=== PATIENT | male | born 1995 | race African-American/Black ===

== ENCOUNTER 2020-11-26 14:17 | Emergency (ER) | payer SELFPAY ==
[~2020-11-26] VITALS: Ht 179.1 cm; Wt 68.0 kg
--- NOTE | 2020-11-26 14:42 | PHYS DOC ---
General Adult EDM: Chief Complaint: DRUG ABUSE HPI: HPI: Patient is a 25 year old male who presents with here by EMS after patient states he " took a big rip off of a K2 bong". Patient had some nausea and vomiting when EMS arrived. EMS states that patient was going in and out of consciousness. Patient is hallucinating and does state that he is at his girlfriend's house. Patient is otherwise alert and oriented. Patient is very tachycardic in the 130s to 140s. States he is on Suboxone and did take it last night. He states that he used cocaine and meth 5 days ago and heroin 2 days ago. He is a smoker but denies any alcohol. He denies SI or HI, chest pain, shortness of breath, abdominal pain, fever, cough, back pain, syncope, dizziness, headache, vision changes, fall. Review of Systems: Review of Systems: Constitutional: Denies fever or chills. [] Eyes: Denies change in visual acuity. [] HENT: Denies nasal congestion or sore throat. [] Respiratory: Denies cough or shortness of breath. [] Cardiovascular: Denies chest pain or edema. [] GI: Denies abdominal pain, +nausea, +vomiting, denies bloody stools or diarrhea. [] : Denies dysuria. [] Musculoskeletal: Denies back pain or joint pain. [] Integument: Denies rash. [] Neurologic: Denies headache, focal weakness or sensory changes. +AMS[] Endocrine: Denies polyuria or polydipsia. [] Lymphatic: Denies swollen glands. [] Psychiatric: Denies depression or anxiety. +Hallucinations[] Heart Score: C/O Chest Pain: No Risk Factors: Risk Factors: DM, Current or recent (<one month) smoker, HTN, HLP, family histo ry of CAD, obesity. Risk Scores: Score 0 - 3: 2.5% MACE over next 6 weeks - Discharge Home Score 4 - 6: 20.3% MACE over next 6 weeks - Admit for Clinical Observation Score 7 - 10: 72.7% MACE over next 6 weeks - Early Invasive Strategies Physical Exam: PE: Constitutional: Well developed, well nourished, no acute distress, non-toxic appearance. [] HENT: Normocephalic, atraumatic, bilateral external ears normal, oropharynx moist, no oral exudates, nose normal. [] Eyes: PERRLA, EOMI, conjunctiva normal, no discharge. [] Neck: Normal range of motion, no tenderness, supple, no stridor. [] Cardiovascular:Heart rate tachycardia regular rhythm, no murmur [] Lungs & Thorax: Bilateral breath sounds clear to auscultation [] Abdomen: Bowel sounds normal, soft, no tenderness, no masses, no pulsatile masses. [] Skin: Warm, dry, no erythema, no rash. [] Back: No tenderness, no CVA tenderness. [] Extremities: No tenderness, no cyanosis, no clubbing, ROM intact, no edema. [] Neurologic: Alert and oriented X 2, normal motor function, normal sensory function, no focal deficits noted. [] Psychologic: Affect normal, judgement normal, mood normal. [] EKG: EK and read by Dr Howard as sinus tachycardia but no STEMI. Radiology/Procedures: Radiology/Procedures: [] Impression: [facility] [address] [place] [address] IMAGING REPORT Signed PATIENT: VANESSA CROCKETT ACCOUNT: [id number] : 1995 LOCATION: ER AGE: 25 SEX: M EXAM STATUS: REG ER ORD. PHYSICIAN: SLADE AGUILAR APRN REASON: tachycardic, ams PROCEDURE: PORTABLE CHEST 1V INDICATION: Reason: tachycardic, ams / Spl. Instructions: / History: COMPARISON: None. FINDINGS: Single view of chest obtained. No focal airspace consolidation. Cardiac silhouette is unremarkable. Suspected calcified granuloma right upper lung. IMPRESSION: * No focal airspace consolidation or edema. Electronically signed by: Cem Corral MD (11/26/2020 3:02 PM) [id number] DICTATED and SIGNED BY: CEM CORRAL MD DATE: 11/26/20 [id number] 0 Course & Med Decision Making: Course & Med Decision Making Pertinent Labs and Imaging studies reviewed. (See chart for details) See HPI. Girlfriend called EMS because friend told her that the patient was passed out and she did not know that he had taken a hit of K2 right before this happened. Speaks in full clear sentences. Follows commands and answers most questions appropriately although he states that he is at his girlfriend's house. He denies SI or HI. He is tachycardic in the 130s to 140s. EMS stated that he was unwilling to come and was fighting back and was very agitated. He has not been agitated here yet. Skin pink warm and dry. Blood work unremarkable. Patient is now up and walking around the hospital with a steady fast gait. Patient is going to leave AMA. He is now alert and oriented x4 without slurred speech. Patient is stable states he is feeling better. Patient understands by leaving AMA and not getting a CT of his head that he could have a brain bleed, there is a chance of or disability or chronic pain. Patient states his understanding and that if anything happens he will come back. Dr Howard has also seen and spoken tot this patient. Girlfriend states that she will be with the patient and watch him closely. [] Enio Disclaimer: Enio Disclaimer: This electronic medical record was generated, in whole or in part, using a voice recognition dictation system. Departure Departure Impression: Primary Impression: Drug abuse Additional Impression: Syncopal episodes Qualified Codes: R55 - Syncope and collapse Disposition: 07 AMA/ELOPED/LWBS Condition: STABLE SLADE AGUILAR APRN Nov 26, 2020 14:42
[2020-11-26 14:44] LABS: BASO # 0.1 x10^3/uL (0.0-0.2); BASO % 1 % (0-3); EOS # 0.1 x10^3/uL (0.0-0.7); EOS % 2 % (0-3); HEMATOCRIT 44.1 % (39.0-53.0); HEMOGLOBIN 15.1 g/dL (13.0-17.5); LYMPH # 2.1 x10^3/uL (1.0-4.8); LYMPH % 27 % (24-48); MEAN CORPUSCULAR HEMOGLOBIN 31 pg (25-35); MEAN CORPUSCULAR HGB CONC 34 g/dL (31-37); MEAN CORPUSCULAR VOLUME 91 fL (79-100); MONO # 0.6 x10^3/uL (0.0-1.1); MONO % 7 % (0-9); NEUT % 64 % (31-73); PLATELET COUNT 239 x10^3/uL (140-400); RED BLOOD COUNT 4.83 x10^6/uL (4.30-5.70); RED CELL DISTRIBUTION WIDTH 12.9 % (11.5-14.5); WHITE BLOOD COUNT 7.8 x10^3/uL (4.0-11.0)
[2020-11-26] MEDS ORDERED: IV NORMAL SALINE 1000ML BAG 1,000 ML IV SCH (14:45)
[2020-11-26 15:00] LABS: CALCIUM 9.3 mg/dL (8.5-10.1); CREATININE 1.3 mg/dL (0.7-1.3); GFR 66.2; POTASSIUM 3.7 mmol/L (3.5-5.1)
[2020-11-26] MEDS ORDERED: IV NORMAL SALINE 1000ML BAG 1,000 ML IV ONE (15:00)
[2020-11-26 15:03] LABS: ALBUMIN 3.8 g/dL (3.4-5.0); TOTAL BILIRUBIN 1.1 mg/dL (0.2-1.0); TOTAL PROTEIN 7.7 g/dL (6.4-8.2)
--- NOTE | 2020-11-26 15:04 | RAD ---
INDICATION: Reason: tachycardic, ams / Spl. Instructions: / History: COMPARISON: None. FINDINGS: Single view of chest obtained. No focal airspace consolidation. Cardiac silhouette is unremarkable. Suspected calcified granuloma right upper lung. IMPRESSION: * No focal airspace consolidation or edema. Electronically signed by: Reymundo Stokes MD (11/26/2020 3:02 PM) [id number]
[2020-11-26 15:22] VITALS: BP 91/44
== END 2020-11-26 15:50 | disposition left against medical advice (07) ==
LOC: ER 14:17 → EDBD 14:17 → ER 15:50
DX: F12.10 Cannabis abuse, uncomplicated (principal); R55 Syncope and collapse; R44.3 Hallucinations, unspecified; R00.0 Tachycardia, unspecified
CPT/HCPCS: 36415; 71045; 80053; 83690; 83880; 84484; 85025; 93005; 96360; 99285; J7030

== ENCOUNTER 2020-12-26 20:13 | Emergency (ER) | payer SELFPAY ==
[~2020-12-26] VITALS: Ht 177.8 cm; Wt 66.0 kg
[2020-12-26] MEDS ORDERED: IV NORMAL SALINE 1000ML BAG 1,000 ML IV ONE (20:30)
--- NOTE | 2020-12-26 20:31 | PHYS DOC ---
Past Medical History Past Medical History: Other Additional Past Medical Histor: DRUG USE Past Surgical History: No Surgical History Smoking Status: Current Every Day Smoker Alcohol Use: None Drug Use: Amphetamine, Cocaine, Marijuana, Methamphetamine, Other (K2) General Adult HPI: HPI: Patient is a 25-year-old male presenting via EMS for drug abuse. Patient self admittedly took methamphetamine, K2 and fentanyl within past 12 hours. Reports getting in verbal altercation after a friend alleges that patient kicked his dog and later states, " I think he put bleach in my syringe and I shot it up"! Patient subsequently called EMS for transport to our facility for evaluation. On arrival, EMS denied any known bleach access, patient at scene denied even having bleach in house, other witness confirmed illicit drug use noted above. Patient has no other medical issues besides polysubstance abuse. No daily medications prescribed. Patient states he is in no pain, "just tripping balls because I do not want to me". Review of Systems: Review of Systems: Fourteen body systems of review of systems have been reviewed. See HPI for pertinent positives and negative responses, other zepeda all other systems are negative, non-pertinent or non-contributory Heart Score: C/O Chest Pain: No HEART Score for Chest Pain: HEART Score for Chest Pain Response (Comments) Value History Moderately Suspicious 1 ECG Nonspecific Repolarizatio 1 Age < 45 0 Risk Factors No Risk Factors 0 Troponin < Normal Limit 0 Total 2 Risk Factors: Risk Factors: DM, Current or recent (<one month) smoker, HTN, HLP, family history of CAD, obesity. Risk Scores: Score 0 - 3: 2.5% MACE over next 6 weeks - Discharge Home Score 4 - 6: 20.3% MACE over next 6 weeks - Admit for Clinical Observation Score 7 - 10: 72.7% MACE over next 6 weeks - Early Invasive Strategies Allergies: Allergies: Allergies Coded Allergies Type Severity Reaction Last Updated Verified No Known Drug Allergies 11/26/20 No Physical Exam: PE: Constitutional: Pt is oriented to person, place, and time. Presentation consistent with acute methamphetamine overdose. Diaphoretic, erratic and pressured speech patterns, concerned about his health HEENT: Head: Normocephalic and atraumatic. Diaphoretic TMs clear, no hemotympanum Conjunctivae and EOM are normal. Pupils are equal, round, and reactive to light. Oropharynx is clear and dry with poor dentition. No hematomas or lacerations or abrasions to face or scalp OP clear, no blood, no malocclusion, dentition intact Nares clear, no nasal septal hematoma Midface stable Neck: C-spine midline nontender, no step-offs Cardiovascular: Tachycardic rate, regular rhythm and normal heart sounds. Pulmonary/Chest: Effort normal and breath sounds normal. No respiratory distress. No wheezes. CTA bilaterally Abdominal: Soft. Bowel sounds are normal. Pt exhibits no distension. There is no tenderness. Musculoskeletal: No bony tenderness to extremities, no deformities, full ROM extremities Chest wall stable Pelvis stable and non-tender No vertebral TTP and spine without stepoffs Neurological: Pt is alert and oriented to person, place, and time. Moving all extremities willfully, able to wiggle all fingers and toes Alert and oriented x 3 Sensation grossly intact Skin: Skin is warm and dry. No abrasions, no lacerations Psychiatric: Unable to fully assess due to acute intoxication of methamphetamine, K2 and fentanyl. Anxious affect and mood. Denies HI/SI Current Patient Data: Labs: Laboratory Tests Test 12/26/20 20:25 White Blood Count 12.4 x10^3/uL Red Blood Count 4.26 x10^6/uL Hemoglobin 13.3 g/dL Hematocrit 37.9 % Mean Corpuscular Volume 89 fL Mean Corpuscular Hemoglobin 31 pg Mean Corpuscular Hemoglobin Concent 35 g/dL Red Cell Distribution Width 13.1 % Platelet Count 275 x10^3/uL Neutrophils (%) (Auto) 73 % Lymphocytes (%) (Auto) 13 % Monocytes (%) (Auto) 13 % Eosinophils (%) (Auto) 1 % Basophils (%) (Auto) 1 % Neutrophils # (Auto) 9.0 x10^3/uL Lymphocytes # (Auto) 1.6 x10^3/uL Monocytes # (Auto) 1.6 x10^3/uL Eosinophils # (Auto) 0.1 x10^3/uL Basophils # (Auto) 0.1 x10^3/uL Sodium Level 143 mmol/L Potassium Level 3.9 mmol/L Chloride Level 105 mmol/L Carbon Dioxide Level 26 mmol/L Anion Gap 12 Blood Urea Nitrogen 21 mg/dL Creatinine 1.6 mg/dL Estimated GFR (Cockcroft-Gault) 63.1 BUN/Creatinine Ratio 13 Glucose Level 70 mg/dL Calcium Level 9.1 mg/dL Total Bilirubin 3.2 mg/dL Aspartate Amino Transf (AST/SGOT) 131 U/L Alanine Aminotransferase (ALT/SGPT) 230 U/L Alkaline Phosphatase 74 U/L Troponin I Quantitative < 0.017 ng/mL Total Protein 7.8 g/dL Albumin 4.5 g/dL Albumin/Globulin Ratio 1.4 Ethyl Alcohol Level < 10 mg/dL Current Medications Medications (Trade) Dose Ordered Sig/Haley Route PRN Reason Start Time Stop Time Status Last Admin Dose Admin Sodium Chloride 1,000 ml @ 0 mls/hr 1X ONCE IV 12/26/20 20:30 12/26/20 20:32 DC 12/26/20 20:36 Lorazepam (Ativan Inj) 2 mg 1X ONCE IVP 12/26/20 20:30 12/26/20 20:32 DC 12/26/20 20:36 Vital Signs: Vital Signs Date Time Temp Pulse Resp B/P (MAP) Pulse Ox O2 Delivery O2 Flow Rate FiO2 12/26/20 20:15 99.3 142 28 132/62 (85) 100 Room Air 99.3 Vital Signs Date Time Temp Pulse Resp B/P (MAP) Pulse Ox O2 Delivery O2 Flow Rate FiO2 12/26/20 21:37 120 118/74 (89) 98 12/26/20 20:15 99.3 28 Room Air 99.3 EKG: EKG: EKG ordered and interpreted by myself at 8 hrs. as sinus rhythm at 140 bpm, unremarkable intervals, no axis deviation, no STEMI Radiology/Procedures: Radiology/Procedures: XR CHEST 1V Clinical History: Reason: drug abuse / Spl. Instructions: / History: Technique: AP view of the chest was obtained at 12/26/2020 8:54 PM. Comparison: November 26, 2020. Findings: The cardiomediastinal silhouette is normal. The pulmonary vasculature is normal. The lungs and pleural margins are clear. Impression: No evidence of an acute cardiopulmonary process. Electronically signed by: Wero Alaniz III, MD (12/26/2020 8:58 PM) [facility] Course & Med Decision Making: Course & Med Decision Making Tachycardic otherwise hemodynamically stable patient with HPI concerning for acute drug intoxication. Physical examination nonconcerning for any emergent or surgical findings Comprehensive ER work-up obtained and grossly nonconcerning Patient initially diaphoretic, erratic and demonstrating classic symptoms of acute intoxication from methamphetamine use. 2 mg IV Ativan administered with significant improvement in patient's mood/affect, demeanor, and compliance Nonetheless, I was notified by nurse that patient wishes to leave against medical advice. Had an extensive discussion with the patient regarding the risks of leaving AMA including but not limited to , permanent disability, and worsening condition. Pt acknowledged the risks and agreed to take full responsibility. Pt was A&Ox4. Patient admits he has left AMA several times in the past and nothing bad has happened. He is knowledgeable that we are open 20/03 and available for reevaluation if he feels necessary Risks and Recommendations: The risks of refusing recommended care that were disclosed and acknowledged by the patient include loss of current lifestyle, permanent mental impairment, and . The recommended medical care being refused has been discussed with the patient and is to stay for continued monitoring, workup, and possible treatment. Despite illicit drug abuse, patient demonstrated all aspects of having full capacity and made decision to leave Patient pulled out her own IV and eloped from ER prior to being seen final time by myself and being given resources and discharge paperwork Enio Disclaimer: Enio Disclaimer: This electronic medical record was generated, in whole or in part, using a voice recognition dictation system. Departure Departure Impression: Primary Impression: Left against medical advice Additional Impression: Polysubstance abuse Disposition: 07 LEFT AWOL/ELOPED Condition: GUARDED Referrals: UNKNOWN PCP NAME (PCP) MICHAEL WHITAKER DO December 26, 2020 20:31
[2020-12-26 20:40] LABS: BASO # 0.1 x10^3/uL (0.0-0.2); BASO % 1 % (0-3); EOS # 0.1 x10^3/uL (0.0-0.7); EOS % 1 % (0-3); HEMATOCRIT 37.9 % (39.0-53.0); HEMOGLOBIN 13.3 g/dL (13.0-17.5); LYMPH # 1.6 x10^3/uL (1.0-4.8); LYMPH % 13 % (24-48); MEAN CORPUSCULAR HEMOGLOBIN 31 pg (25-35); MEAN CORPUSCULAR HGB CONC 35 g/dL (31-37); MEAN CORPUSCULAR VOLUME 89 fL (79-100); MONO # 1.6 x10^3/uL (0.0-1.1); MONO % 13 % (0-9); NEUT % 73 % (31-73); PLATELET COUNT 275 x10^3/uL (140-400); RED BLOOD COUNT 4.26 x10^6/uL (4.30-5.70); RED CELL DISTRIBUTION WIDTH 13.1 % (11.5-14.5); WHITE BLOOD COUNT 12.4 x10^3/uL (4.0-11.0)
--- NOTE | 2020-12-26 20:51 | EKG ---
[facility] [address] [place] [address] Test Date: 2020-12-26 Test Time: 20:20:42 Pat Name: VANESSA CROCKETT Department: Room: Gender: M Medication Reconciliation Technician: : 1995 Requested By: MICHAEL WHITAKER Order Number: [id number] Reading MD: Measurements Intervals [place] Rate: 140 P: 97 SC: 120 QRS: 60 QRSD: 94 T: 46 QT: 284 QTc: 437 Interpretive Statements SINUS TACHYCARDIA R-S TRANSITION ZONE IN V LEADS DISPLACED TO THE RIGHT INCOMPLETE RIGHT BUNDLE BRANCH BLOCK OTHERWISE NORMAL ECG RI6.02 No previous ECG available for comparison
[2020-12-26 20:54] LABS: CALCIUM 9.1 mg/dL (8.5-10.1); CREATININE 1.6 mg/dL (0.7-1.3); GFR 63.1; POTASSIUM 3.9 mmol/L (3.5-5.1)
[2020-12-26 20:59] LABS: ALBUMIN 4.5 g/dL (3.4-5.0); ALBUMIN/GLOBULIN RATIO 1.4 (1.0-1.7); TOTAL BILIRUBIN 3.2 mg/dL (0.2-1.0); TOTAL PROTEIN 7.8 g/dL (6.4-8.2)
--- NOTE | 2020-12-26 21:01 | RAD ---
XR CHEST 1V Clinical History: Reason: drug abuse / Spl. Instructions: / History: Technique: AP view of the chest was obtained at 12/26/2020 8:54 PM. Comparison: November 26, 2020. Findings: The cardiomediastinal silhouette is normal. The pulmonary vasculature is normal. The lungs and pleura l margins are clear. Impression: No evidence of an acute cardiopulmonary process. Electronically signed by: Wero Alaniz III, MD (12/26/2020 8:58 PM) [facility]
[2020-12-26 21:37] VITALS: BP 118/74
== END 2020-12-26 22:20 | disposition left against medical advice (07) ==
LOC: ER 20:13
DX: F19.10 Other psychoactive substance abuse, uncomplicated (principal); F17.200 Nicotine dependence, unspecified, uncomplicated
CPT/HCPCS: 36415; 71045; 80053; 84484; 85025; 93005; 96374; 99285; G0480; J2060; J7030